=== PATIENT | male | born 1985 | race Caucasian/White ===

== ENCOUNTER 2020-01-27 14:58 | Emergency (ER) | payer OTHER ==
[~2020-01-27] VITALS: Ht 175.3 cm; Wt 77.1 kg
[2020-01-27] MEDS ORDERED: ADDERALL 10 MG10 MG PO (16:06)
[2020-01-27] MEDS ORDERED: PRINIVIL20 M1 PO (16:06)
[2020-01-27] MEDS ORDERED: PROTONIX 20 MG20 MG PO (16:07)
[2020-01-27] MEDS ORDERED: BREO ELLIPTA 11 EACH (16:07)
[2020-01-27 16:38] LABS: URINE BILIRUBIN NEGATIVE (Negative); URINE BLOOD NEGATIVE (Negative); URINE CLARITY CLEAR; URINE COLOR YELLOW; URINE GLUCOSE-RANDOM* NEGATIVE (Negative); URINE KETONES NEGATIVE (Negative); URINE LEUKOCYTES-REFLEX NEGATIVE (Negative); URINE NITRITE-REFLEX NEGATIVE (Negative); URINE PROTEIN (DIPSTICK) NEGATIVE (Negative); URINE SPECIFIC GRAVITY 1.015 (1.005-1.035)
[2020-01-27 16:46] LABS: HEMATOCRIT 45.4 % (42.0-52.0); HEMOGLOBIN 15.1 gm/dL (14.0-18.0); MCH 30.9 pg (26.0-34.0); MCHC 33.3 g/dL (28.0-37.0); MCV 92.9 fL (80.0-100.0); PLATELET COUNT 215 thou/uL (150-400); RBC 4.89 mil/uL (4.50-6.00); RDW 13.5 % (10.5-14.5)
[2020-01-27 16:48] LABS: AMP/METHAMP Negative (Negative); BARBITURATES Negative (Negative); BENZODIAZEPINES Negative (Negative); COCAINE Negative (Negative); METHADONE Negative (Negative); OPIATES Negative (Negative); PCP Negative (Negative)
[2020-01-27 17:02] LABS: ANION GAP 8 mmol/L (7-16); BUN 14 mg/dL (7-18); CALCIUM 8.7 mg/dL (8.5-10.1); CHLORIDE 104 mmol/L (98-107); CO2 27 mmol/L (21-32); CREATININE 0.9 mg/dL (0.7-1.3); GLUCOSE 86 mg/dL (74-106); POTASSIUM 4.1 mmol/L (3.5-5.1); SODIUM 139 mmol/L (136-145)
[2020-01-27 17:10] LABS: ABSOLUTE NEUTROPHILS 2.8 thou/uL (1.4-8.2); ATYPICAL LYMPHS 1 %; PLATELET ESTIMATE NORMAL
[2020-01-27 17:12] LABS: ALBUMIN 3.9 g/dL (3.4-5.0); SGOT 22 U/L (15-37); SGPT 30 U/L (30-65); TOTAL BILIRUBIN 0.5 mg/dL (0.2-1.0); TOTAL PROTEIN 7.2 g/dL (6.4-8.2); TROPONIN-I <0.06 ng/mL (<0.06)
[2020-01-27 17:41] VITALS: BP 114/64
--- NOTE | 2020-01-28 08:17 | EKG ---
[facility] [place] [address] ELECTROCARDIOGRAM REPORT Name: SATISH LÓPEZ Room #: DEP M.R.#: [id number] Admission: 01/27/20 Attend Phys: Discharge: 01/27/20 Date of : 89 Report #: [id number] THIS REPORT FOR: cc: TIM - No family physician/PCP FAM - No family physician/PCP Quique Skaggs MD [facility] THIS REPORT FOR: //name// [facility] ED Test Date: 2020-01-27 Test Time: 15:12:22 Pat Name: SATISH LÓPEZ Department: Room: Gender: Pan Helper: [facility] : 1985 Requested By: Lana Gomez Order Number: [id number] MD: Quique Skaggs Measurements Intervals [place] Rate: 69 P: 47 W[place]: 110 QRS: 70 QRSD: 94 T: 49 QT: 362 QTc: 388 Interpretive Statements Sinus rhythm Normal tracing No previous ECG available for comparison Electronically Signed On 01-28-2020 8:15:19 CDT by Quique Skaggs [email or web address] <ELECTRONICALLY SIGNED> By: Quique Skaggs MD, [facility] 01/28/20 0815 1512 11 Quique Skaggs MD, FACC /EPI
== END 2020-01-27 17:43 | disposition home or self-care (01) ==
LOC: ER 14:58
PROVIDERS: Nurse Practitioner Family
DX: R00.2 Palpitations (principal); R07.89 Other chest pain; F41.9 Anxiety disorder, unspecified; J45.909 Unspecified asthma, uncomplicated; I10 Essential (primary) hypertension; F17.210 Nicotine dependence, cigarettes, uncomplicated; Z79.899 Other long term (current) drug therapy; Z91.041 Radiographic dye allergy status